=== PATIENT | female | born 1970 | race Asian ===

== ENCOUNTER 2018-07-04 16:53 | Outpatient (CLI) | payer OTHER | END 2018-07-04 20:12 | disposition home or self-care (01) | LOC: MLB 16:53 | DX: N92.6 Irregular menstruation, unspecified (principal) | CPT/HCPCS: 36415; 83001; 83002; 83036; 84479 ==

== ENCOUNTER 2018-07-18 17:08 | Outpatient (CLI) | payer OTHER ==
[2018-07-19 08:10] LABS: FOLLICLE STIMULATING HORMONE 1.6 mIU/mL (.); LUTEINIZING HORMONE 3.5 mIU/mL (.)
== END 2018-07-18 19:55 | disposition home or self-care (01) ==
LOC: MLB 17:08
DX: N93.8 Other specified abnormal uterine and vaginal bleeding (principal)
CPT/HCPCS: 36415; 83001; 83002; 83036

== ENCOUNTER 2018-10-20 10:46 | Outpatient (CLI) | payer OTHER ==
[2018-10-20 11:48] LABS: PROTHROMBIN TIME 9.9 secs (10.8-13.4)
[2018-10-20 11:55] LABS: ALBUMIN 3.6 g/dL (3.4-5.0); ANION GAP 13.2 (8-16); CARBON DIOXIDE 28.6 mmol/L (21-32); CHOL/HDL RATIO 2.2 (1-4.5); CREATININE 0.7 mg/dL (0.6-1.3); POTASSIUM 3.8 mmol/L (3.5-5.1); TOTAL BILIRUBIN 0.9 mg/dL (0.0-1.0)
[2018-10-20 12:16] LABS: BASOPHILS # (AUTO) 0.1 K/uL (0.00-0.22); BASOPHILS % (AUTO) 0.9 % (0.0-2.0); EOSINOPHILS # (AUTO) 0.4 K/uL (0-0.4); EOSINOPHILS % (AUTO) 6.3 % (0.0-4.0); HEMATOCRIT 41.8 % (36-48); HEMOGLOBIN 14.2 g/dL (12.0-16.0); LYMPHOCYTES # (AUTO) 2.1 K/uL (2.5-16.5); MEAN CORPUSCULAR HEMOGLOBIN 31 pg (27-31); MEAN CORPUSCULAR HGB CONC 34 g/dL (33-37); MEAN CORPUSCULAR VOLUME 90.7 fL (80-94); MONOCYTES # (AUTO) 0.3 K/uL (0.8-1.0); NEUTROPHILS % (AUTO) 57.8 % (42.2-75.2); PLATELET COUNT (AUTO) 274 K/uL (140-450); RED CELL DISTRIBUTION WIDTH 14.4 % (11.6-13.7)
== END 2018-10-20 21:03 | disposition home or self-care (01) ==
LOC: MLB 10:46
DX: Z01.812 Encounter for preprocedural laboratory examination (principal); C54.1 Malignant neoplasm of endometrium; E11.9 Type 2 diabetes mellitus without complications
CPT/HCPCS: 36415; 71046; 80053; 83036; 84703; 85025; 85610; 85730